=== PATIENT | female | born 1960 | race Hispanic/Latino ===

== ENCOUNTER → 2018-05-03 | Outpatient (CLI) | payer OTHER ==
--- NOTE | 2018-05-03 16:56 | Diagnostic Imaging Report ---
Pelvic transabdominal ultrasound dated 05/03/2018 at 2:09 PM. History: Follow-up uterine fibroid. Comparison: 01/12/2017 transvaginal pelvic ultrasound. Discussion: Transabdominal evaluation of the pelvis was performed in the transverse and longitudinal planes (transvaginal was not ordered). The uterus is normal in size measuring 7.7 x 3.5 x 4.1 cm. The endometrial stripe is within normal limits at 3 mm. The previously described calcified posterior uterine fibroid seen on the prior transvaginal study is not visualized on this transabdominal only study. The right ovary measures 2.2 x 1.7 x 1.5 cm. The left ovary was not visualized due to overlying gas. There is no evidence of an adnexal mass. There is no evidence of free fluid. IMPRESSION: Limited transabdominal ultrasound. Signed by: Dr. Emery Henriquez DO on 05/03/2018 4:53 PM
== END ==
LOC: US 13:44
PROVIDERS: ATTEND Internal Medicine
DX: D26.7 Other benign neoplasm of other parts of uterus (principal)
CPT/HCPCS: 76856

== ENCOUNTER → 2018-05-14 | Outpatient (CLI) | payer BC ==
--- NOTE | 2018-05-14 08:18 | Diagnostic Imaging Report ---
EXAM: CT Chest without contrast INDICATION: Abnormal chest x-ray, bilateral pleural thickening. COMPARISON: None TECHNIQUE: Chest was scanned utilizing a multidetector helical scanner from the lung apex through the level of the adrenal glands without administration of IV contrast. Coronal and sagittal reformations were obtained. Routine protocol was performed. RADIATION DOSE: Total DLP: 465.4 mGy*cm Estimated effective dose: (DLP x 0.014 x size factor) mSv COMPLICATIONS: None FINDINGS: LINES/ TUBES: None. LUNGS AND AIRWAYS/PLEURA: The central airways are patent. There is biapical pleural-parenchymal opacity. There is coarse bilateral lower lung predominant pleural calcifications. There is associated linear scarring versus atelectasis in the bilateral lower lobes and lingula. No evidence of pneumonia or pulmonary edema. Tiny 2 mm left lower lobe pulmonary nodule on image 55. A 3 mm calcified left lower lobe nodule on image 71. HEART AND MEDIASTINUM: The thyroid gland is normal. No mediastinal, hilar or axillary lymphadenopathy. No cardiomegaly or pericardial effusion. Coronary atherosclerosis. UPPER ABDOMEN: Limited non-contrast views of the upper abdomen. Subcentimeter right hepatic lobe hypodensity is too small to characterize, but likely represents a cyst. There are calcifications within the left adrenal gland, which may reflect sequela of prior infectious or traumatic process. BONES: No acute osseous abnormality. No suspicious lytic or blastic lesions. Diffuse osteopenia. Mild degenerative changes of the visualized spine. SOFT TISSUES: Unremarkable. IMPRESSION: Bilateral coarse calcified pleural plaques, which may reflect sequela of prior asbestos exposure or infectious process. Sequela of prior granulomatous disease. Tiny 2 mm left lower lobe pulmonary nodule is likely benign and requires no further follow-up. If there is a high risk for malignancy, an optional 12 month follow-up chest CT may be considered for further valuation. Coronary atherosclerosis. Signed by: Dr. Oc Molina MD on 05/14/2018 8:14 AM
== END ==
LOC: CT 06:44
PROVIDERS: ATTEND Family Medicine
DX: R91.8 Other nonspecific abnormal finding of lung field (principal)
CPT/HCPCS: 71250

== ENCOUNTER → 2019-04-11 | Outpatient (CLI) | payer BC ==
--- NOTE | 2019-04-11 14:40 | Diagnostic Imaging Report ---
EXAM: BONE MINERAL DENSITY HISTORY: Screening COMPARISON: None DISCUSSION: Evaluation of the left hip and lumbar spine was performed utilizing DEXA Hologic bone densitometer. The study is technically adequate. The patient's fracture risk is compared to an age-matched control. The patient denies prior surgery/fracture of the spine, hips or forearm. Left hip femoral neck bone mineral density: 0.708 g/cm2, T-score is -1.4, Z-score is -0.2. Left hip total bone mineral density: 0.875 g/cm2, T-score is -0.7, Z-score is 0.2. Lumbar spine total bone mineral density: 0.849 gm/cm2, T-score is -1.8, Z-score is -0.5. Impression: Bone mineralization by WHO Classification is osteopenia, the fracture risk is increased. Signed by: Andrea Roman MD on 04/11/2019 2:37 PM
== END ==
LOC: MAMMO 13:23
PROVIDERS: ATTEND Internal Medicine
DX: Z12.31 Encounter for screening mammogram for malignant neoplasm of breast (principal); M85.80 Other specified disorders of bone density and structure, unspecified site
CPT/HCPCS: 77067; 77080

== ENCOUNTER → 2020-07-31 | Outpatient (CLI) | payer BC | LOC: RAD 12:28 | PROVIDERS: ATTEND Family Medicine | DX: D16.4 Benign neoplasm of bones of skull and face (principal) | CPT/HCPCS: 70260 ==

== ENCOUNTER → 2021-02-04 | Outpatient (CLI) | payer BC | LOC: MAMMO 08:29 | PROVIDERS: ATTEND Internal Medicine | DX: Z12.31 Encounter for screening mammogram for malignant neoplasm of breast (principal); D16.4 Benign neoplasm of bones of skull and face; R22.0 Localized swelling, mass and lump, head | CPT/HCPCS: 70450; 77067 ==

== ENCOUNTER → 2021-02-18 | Outpatient (CLI) | payer BC | LOC: RAD 15:21 | PROVIDERS: ATTEND Internal Medicine | DX: J41.0 Simple chronic bronchitis (principal) | CPT/HCPCS: 71046 ==

== ENCOUNTER → 2023-01-19 | Outpatient (REF) | payer BC | LOC: MAMMO 09:47 | PROVIDERS: ATTEND Internal Medicine | DX: Z12.31 Encounter for screening mammogram for malignant neoplasm of breast (principal) | CPT/HCPCS: 77067 ==